=== PATIENT | female | born 1955 | race Caucasian/White ===

== ENCOUNTER 2018-05-22 16:50 | Inpatient (IN) | payer OTHER ==
[~2018-05-22] VITALS: Ht 152.4 cm; Wt 50.8 kg
[2018-05-22] MEDS ORDERED: PROPRANOLOL PO (17:04)
[2018-05-22] MEDS ORDERED: LEVOTHYROXINE88 MCG PO (17:04)
[2018-05-22] MEDS ORDERED: CRESTOR20 MG PO (17:05)
--- NOTE | 2018-05-22 17:05 | NUR ---
SE RECIBE PTE ALERTA Y ORIENTADA EN TIEMPO, LUGAR Y PERSONA. PTE REFIERE DOLOR ABDOMINAL HACE 2 SEMANAS. SE PROCEDE A SONJA S/V Y UBICAR PTE EN AREA DE OBSERVACION K-5.
[2018-05-27] MEDS ORDERED: RESTORA CAPSUL1 EACH PO (07:59)
[2018-05-27] MEDS ORDERED: ULTRACET PO (07:59)
[2018-05-27] MEDS ORDERED: LEVSIN/SL0.125 MG SL (08:00)
== END 2018-05-27 11:21 | disposition home or self-care (01) | DRG 392 ==
LOC: ER 16:50 → SURH 18:56 → SURG 05-25 12:28
PROVIDERS: ADMIT Surgery
PROC: BW21ZZZ Computerized Tomography (CT Scan) of Abdomen and Pelvis (ICD-10-PCS; principal; 2018-05-26)
DX: K57.20 Diverticulitis of large intestine with perforation and abscess without bleeding (principal); I10 Essential (primary) hypertension; E03.8 Other specified hypothyroidism; R20.2 Paresthesia of skin; M54.5 Low back pain

== ENCOUNTER 2018-08-06 11:30 | Inpatient (IN) | payer OTHER ==
[~2018-08-06] VITALS: Ht 165.1 cm; Wt 50.3 kg
[~2018-08-06 11:30] MED LIST: CRESTOR20 MG PO; LEVOTHYROXINE88 MCG PO; LEVSIN/SL0.125 MG SL; PROPRANOLOL PO; RESTORA CAPSUL1 EACH PO; ULTRACET PO
[2018-08-06] MEDS ORDERED: METOPROLOL SUCC25 MG (13:46)
[2018-08-10] MEDS ORDERED: LONITEN2.5 MG PO (08:31)
[2018-08-14] MEDS ORDERED: ACIDOPHILUS-PE1 EAC2 PO (08:23)
[2018-08-14] MEDS ORDERED: TRAM1TAB98 PO (08:23)
[2018-08-14] MEDS ORDERED: IMITREX SUBCUTANEO (08:24)
[2018-08-14] MEDS ORDERED: LEVSIN/SL0.125 MG SL (08:32)
== END 2018-08-14 10:09 | disposition home or self-care (01) | DRG 331 ==
LOC: EDSTATUS 12:45 → ADM 12:45 → O/R 08-10 06:10 → SURG 08-10 06:10 → SURH 08-10 12:45 → SURG 08-10 12:56
PROVIDERS: ADMIT Surgery
PROC: 0DJD8ZZ Inspection of Lower Intestinal Tract, Via Natural or Artificial Opening Endoscopic (ICD-10-PCS; 2018-08-10)
PROC: 0D9W4ZZ Drainage of Peritoneum, Percutaneous Endoscopic Approach (ICD-10-PCS; 2018-08-10)
PROC: 0DTN4ZZ Resection of Sigmoid Colon, Percutaneous Endoscopic Approach (ICD-10-PCS; principal; 2018-08-10 18:45)
DX: K57.20 Diverticulitis of large intestine with perforation and abscess without bleeding (principal); N73.6 Female pelvic peritoneal adhesions (postinfective); G43.001 Migraine without aura, not intractable, with status migrainosus; E03.8 Other specified hypothyroidism; E78.49 Other hyperlipidemia